=== PATIENT | male | born 1950 | race Caucasian/White ===

== ENCOUNTER 2017-08-09 12:30 | Inpatient (IN) | payer MEDICARE, OTHER ==
[2017-08-09 13:40] LABS: ADD MAN DIFF? NO
[2017-08-09 13:43] LABS: WHITE BLOOD COUNT 4.8 10^3/ul (4.8-10.8)
[2017-08-09 13:43] LABS: BASOPHILS % 0.6 % (0.0-2.0); EOSINOPHILS # 0.1 10^3/ul (0.0-0.5); EOSINOPHILS % 1.5 % (0.0-7.0); HEMATOCRIT 47.2 % (42.0-52.0); HEMOGLOBIN 15.7 g/dl (14.0-18.0); LYMPHOCYTES # 1.3 10^3/ul (0.8-2.9); LYMPHOCYTES % 27.3 % (15.0-51.0); MEAN CORPUSCULAR HEMOGLOBIN 28.9 pg (29.0-33.0); MEAN CORPUSCULAR HGB CONC 33.3 g/dl (32.0-37.0); MEAN CORPUSCULAR VOLUME 86.8 fl (82.0-101.0); MEAN PLATELET VOLUME 9.6 fl (7.4-10.4); MONOCYTE # 0.3 10^3/ul (0.3-0.9); MONOCYTES % 6.3 % (0.0-11.0); NEUTROPHIL # 3.1 10^3/ul (1.6-7.5); NEUTROPHILS % 64.1 % (39.0-77.0); PLATELET COUNT 202 10^3/UL (140-415); RED BLOOD COUNT 5.44 10^6/ul (4.70-6.10); RED CELL DISTRIBUTION WIDTH 14.4 % (11.5-14.5)
[2017-08-09] MEDS: ASPIRIN 325 MG TAB PO (13:44)
[2017-08-09 13:59] LABS: HEMOGLOBIN A1C 5.4 % (0-5.9)
[2017-08-09 13:59] LABS: PROTIME 13.3 Sec (11.9-14.9)
[2017-08-09 14:00] LABS: ADD UMIC NO; PARTIAL THROMBOPLASTIN TIME 30.6 Sec (25.0-35.0); UR ASCORBIC ACID NEGATIVE (NEGATIVE); UR BILIRUBIN (Dip) NEGATIVE (NEGATIVE); UR BLOOD (Dip) NEGATIVE (NEGATIVE); UR CLARITY CLEAR (CLEAR); UR COLOR STRAW (YELLOW); UR GLUCOSE (Dip) NEGATIVE (NEGATIVE); UR KETONES (Dip) NEGATIVE (NEGATIVE); UR LEUKOCYTE ESTERASE (Dip) NEGATIVE Leu/ul (NEGATIVE); UR NITRITE (Dip) NEGATIVE (NEGATIVE); UR SPECIFIC GRAVITY (Dip) 1.012 (1.003-1.030); UR TOTAL PROTEIN (Dip) NEGATIVE (NEGATIVE); UR UROBILINOGEN (Dip) NEGATIVE (NEGATIVE)
[2017-08-09 14:01] LABS: ANION GAP 14 (8-16); BLOOD UREA NITROGEN 23 mg/dl (7-20); CALCIUM 9.4 mg/dl (8.4-10.2); CARBON DIOXIDE 32 mmol/L (21-31); CHLORIDE 98 mmol/L (97-110); CREATININE 0.83 mg/dl (0.61-1.24); GLUCOSE 107 mg/dl (70-220); POTASSIUM 3.5 mmol/L (3.5-5.1); SODIUM 140 mmol/L (135-144)
[2017-08-09] MEDS: SOD CHLORIDE 0.9% 100 ML (14:11)
[2017-08-09] MEDS: IOHEXOL 300MG/ML 150 ML BTL (14:11)
[2017-08-09 14:15] LABS: TROPONIN-I < 0.012 ng/ml (0.00-0.12)
[2017-08-09] MEDS: SOD CHLORIDE 0.9% 1,000 ML IV (14:16)
[2017-08-09 14:22] LABS: AMPHETAMINE/METHAMPHETAMINE Negative (NEGATIVE); BARBITURATES Negative (NEGATIVE); BENZODIAZEPINES Negative (NEGATIVE); CANNABINOIDS Negative (NEGATIVE); COCAINE Negative (NEGATIVE); OPIATES Negative (NEGATIVE)
[2017-08-09] MEDS ORDERED: ONDANSETRON 4 MG INJ IV ×2 (15:00→20:00)
[2017-08-09] MEDS ORDERED: ACETAMINOPHEN 325 MG TAB PO (15:00)
[2017-08-09] MEDS ORDERED: NACL 0.9% 3 ML SYG IV (20:00)
[2017-08-09] MEDS: ATORVASTATIN 80 MG TAB PO ×3 (20:45→20:46)
[2017-08-09 21:38] LABS: CREATINE KINASE 163 IU/L (23-200)
[2017-08-09 21:53] LABS: CK-MB 1.67 ng/ml (0.0-2.4); TROPONIN-I < 0.012 ng/ml (0.00-0.12)
[2017-08-10 01:31] LABS: CREATINE KINASE 174 IU/L (23-200)
[2017-08-10 01:51] LABS: CK-MB 1.74 ng/ml (0.0-2.4); TROPONIN-I < 0.012 ng/ml (0.00-0.12)
[2017-08-10] MEDS ORDERED: hydrALAzine 20 MG INJ IV (06:30)
[2017-08-10 07:21] LABS: ADD MAN DIFF? NO
[2017-08-10 07:34] LABS: BASOPHILS % 0.5 % (0.0-2.0); EOSINOPHILS # 0.2 10^3/ul (0.0-0.5); EOSINOPHILS % 2.9 % (0.0-7.0); HEMATOCRIT 44.3 % (42.0-52.0); LYMPHOCYTES # 1.1 10^3/ul (0.8-2.9); LYMPHOCYTES % 20.6 % (15.0-51.0); MEAN CORPUSCULAR HEMOGLOBIN 29.1 pg (29.0-33.0); MEAN CORPUSCULAR HGB CONC 33.9 g/dl (32.0-37.0); MEAN CORPUSCULAR VOLUME 85.9 fl (82.0-101.0); MONOCYTE # 0.4 10^3/ul (0.3-0.9); MONOCYTES % 6.4 % (0.0-11.0); NEUTROPHIL # 3.8 10^3/ul (1.6-7.5); NEUTROPHILS % 69.4 % (39.0-77.0); PLATELET COUNT 218 10^3/UL (140-415); RED BLOOD COUNT 5.16 10^6/ul (4.70-6.10); RED CELL DISTRIBUTION WIDTH 14.4 % (11.5-14.5)
[2017-08-10 07:34] LABS: WHITE BLOOD COUNT 5.5 10^3/ul (4.8-10.8)
[2017-08-10 07:54] LABS: ALANINE AMINOTRANSFERASE 37 IU/L (13-69); ALBUMIN 3.9 g/dl (3.3-4.9); ALBUMIN/GLOBULIN RATIO 1.21; ALKALINE PHOSPHATASE 70 IU/L (42-121); ANION GAP 12 (8-16); ASPARTATE AMINO TRANSFERASE 31 IU/L (15-46); BILIRUBIN,INDIRECT 0.4 mg/dl (0-1.1); BILIRUBIN,TOTAL 0.4 mg/dl (0.2-1.3); BLOOD UREA NITROGEN 20 mg/dl (7-20); CALCIUM 8.8 mg/dl (8.4-10.2); CARBON DIOXIDE 29 mmol/L (21-31); CHLORIDE 106 mmol/L (97-110); CHOL/HDL RATIO 3.5 RATIO; CHOLESTEROL 157 mg/dl (100-200); CREATININE 0.74 mg/dl (0.61-1.24); GLUCOSE 91 mg/dl (70-220); HDL CHOLESTEROL 44 mg/dl (30-78); LDL CHOLESTEROL,CALCULATED 98 mg/dl; MAGNESIUM 1.9 mg/dl (1.7-2.5); POTASSIUM 3.5 mmol/L (3.5-5.1); SODIUM 143 mmol/L (135-144); TOTAL PROTEIN 7.1 g/dl (6.1-8.1); TRIGLYCERIDES 74 mg/dl (0-149)
[2017-08-10] MEDS: ASPIRIN 81 MG TAB PO (08:13)
[2017-08-10 08:54] LABS: HEMOGLOBIN A1C 5.5 % (0-5.9)
[2017-08-10] MEDS: AMLODIPINE 5 MG TAB PO (12:54)
[2017-08-10] MEDS: HYDROCHLOROTHIAZIDE 25 MG TAB PO (12:54)
[2017-08-10] MEDS: ATORVASTATIN 80 MG TAB PO (21:49)
[2017-08-11 06:53] LABS: ADD MAN DIFF? NO
[2017-08-11 06:56] LABS: BASOPHILS % 0.6 % (0.0-2.0); EOSINOPHILS # 0.3 10^3/ul (0.0-0.5); EOSINOPHILS % 5.2 % (0.0-7.0); HEMATOCRIT 45.1 % (42.0-52.0); HEMOGLOBIN 15.3 g/dl (14.0-18.0); LYMPHOCYTES # 1.2 10^3/ul (0.8-2.9); MEAN CORPUSCULAR HEMOGLOBIN 28.8 pg (29.0-33.0); MEAN CORPUSCULAR HGB CONC 33.9 g/dl (32.0-37.0); MEAN CORPUSCULAR VOLUME 84.9 fl (82.0-101.0); MEAN PLATELET VOLUME 9.7 fl (7.4-10.4); MONOCYTE # 0.4 10^3/ul (0.3-0.9); MONOCYTES % 7.4 % (0.0-11.0); NEUTROPHIL # 3.4 10^3/ul (1.6-7.5); NEUTROPHILS % 63.6 % (39.0-77.0); PLATELET COUNT 206 10^3/UL (140-415); RED BLOOD COUNT 5.31 10^6/ul (4.70-6.10); RED CELL DISTRIBUTION WIDTH 14.2 % (11.5-14.5)
[2017-08-11 06:56] LABS: WHITE BLOOD COUNT 5.4 10^3/ul (4.8-10.8)
[2017-08-11 07:29] LABS: ANION GAP 10 (8-16); BLOOD UREA NITROGEN 20 mg/dl (7-20); CARBON DIOXIDE 29 mmol/L (21-31); CHLORIDE 101 mmol/L (97-110); CREATININE 0.82 mg/dl (0.61-1.24); GLUCOSE 96 mg/dl (70-220); MAGNESIUM 1.9 mg/dl (1.7-2.5); POTASSIUM 3.4 mmol/L (3.5-5.1); SODIUM 137 mmol/L (135-144)
[2017-08-11 07:42] LABS: FREE THYROXINE INDEX (Calc) 3.25 ug/ml (0.65-3.89); T3 UPTAKE 35.7 % (23.5-40.5); T4 (THYROXINE) 9.1 ug/dl (5.5-11.0)
[2017-08-11] MEDS: ASPIRIN 81 MG TAB PO (08:21)
[2017-08-11] MEDS: AMLODIPINE 5 MG TAB PO (08:21)
[2017-08-11] MEDS: HYDROCHLOROTHIAZIDE 25 MG TAB PO (08:21)
[2017-08-11] MEDS: INFLUENZA VIRUS VACCINE 0.5 ML (DISPENSING) IM* (08:22)
[2017-08-11] MEDS: AMOXICILLIN/CLAV 875 MG TAB PO ×2 (11:56→20:56)
[2017-08-11] MEDS: POTASSIUM CHLORIDE (SR) 20 MEQ TAB PO (16:17)
[2017-08-11] MEDS: ATORVASTATIN 80 MG TAB PO (20:56)
[2017-08-12 07:16] LABS: ADD MAN DIFF? NO
[2017-08-12 07:24] LABS: WHITE BLOOD COUNT 6.2 10^3/ul (4.8-10.8)
[2017-08-12 07:24] LABS: BASOPHILS % 0.6 % (0.0-2.0); EOSINOPHILS # 0.3 10^3/ul (0.0-0.5); EOSINOPHILS % 4.3 % (0.0-7.0); HEMOGLOBIN 14.9 g/dl (14.0-18.0); LYMPHOCYTES # 1.3 10^3/ul (0.8-2.9); LYMPHOCYTES % 20.9 % (15.0-51.0); MEAN CORPUSCULAR HGB CONC 33.9 g/dl (32.0-37.0); MEAN CORPUSCULAR VOLUME 85.8 fl (82.0-101.0); MEAN PLATELET VOLUME 9.5 fl (7.4-10.4); MONOCYTE # 0.5 10^3/ul (0.3-0.9); MONOCYTES % 8.7 % (0.0-11.0); NEUTROPHIL # 4.1 10^3/ul (1.6-7.5); NEUTROPHILS % 65.3 % (39.0-77.0); PLATELET COUNT 205 10^3/UL (140-415); RED BLOOD COUNT 5.13 10^6/ul (4.70-6.10); RED CELL DISTRIBUTION WIDTH 14.2 % (11.5-14.5)
[2017-08-12 07:49] LABS: ANION GAP 12 (8-16); BLOOD UREA NITROGEN 20 mg/dl (7-20); CALCIUM 8.5 mg/dl (8.4-10.2); CARBON DIOXIDE 29 mmol/L (21-31); CHLORIDE 104 mmol/L (97-110); CREATININE 0.82 mg/dl (0.61-1.24); GLUCOSE 89 mg/dl (70-220); POTASSIUM 3.9 mmol/L (3.5-5.1); SODIUM 141 mmol/L (135-144)
[2017-08-12] MEDS: AMLODIPINE 5 MG TAB PO ×2 (09:00→09:35)
[2017-08-12] MEDS: AMOXICILLIN/CLAV 875 MG TAB PO ×2 (09:35→20:33)
[2017-08-12] MEDS: HYDROCHLOROTHIAZIDE 25 MG TAB PO (09:36)
[2017-08-12] MEDS: ATORVASTATIN 80 MG TAB PO (20:33)
== END 2017-08-12 21:55 | DRG 65 ==
LOC: E/R 12:30 → TEL 14:51
DX: I63.9 Cerebral infarction, unspecified (principal); G81.91 Hemiplegia, unspecified affecting right dominant side; I11.9 Hypertensive heart disease without heart failure; G93.0 Cerebral cysts; J01.00 Acute maxillary sinusitis, unspecified; J01.20 Acute ethmoidal sinusitis, unspecified
CPT/HCPCS: 70450; 70496; 70498; 70544; 70551; 71045; 80048; 80053; 80061; 80307; 81003; 82550; 82553; 83036; 83735; 84436; 84443; 84479; 84484; 85025; 85610; 85730; 90686; 92610; 93005; 93306; 97110; 97116; 97162; 97167; 97530; 99291-25

== ENCOUNTER 2017-08-12 22:12 | Inpatient (IN) | payer MEDICARE, OTHER ==
[2017-08-12 23:30] LABS: ADD UMIC YES; UR ASCORBIC ACID NEGATIVE (NEGATIVE); UR BILIRUBIN (Dip) NEGATIVE (NEGATIVE); UR BLOOD (Dip) 1+ mg/dL (NEGATIVE); UR CLARITY CLEAR (CLEAR); UR COLOR STRAW (YELLOW); UR GLUCOSE (Dip) NEGATIVE (NEGATIVE); UR KETONES (Dip) NEGATIVE (NEGATIVE); UR LEUKOCYTE ESTERASE (Dip) NEGATIVE Leu/ul (NEGATIVE); UR NITRITE (Dip) NEGATIVE (NEGATIVE); UR RBC 0 /HPF (0-5); UR SPECIFIC GRAVITY (Dip) 1.009 (1.003-1.030); UR TOTAL PROTEIN (Dip) NEGATIVE (NEGATIVE); UR UROBILINOGEN (Dip) NEGATIVE (NEGATIVE); UR WBC 0 /HPF (0-5)
[2017-08-13] MEDS ORDERED: ONDANSETRON 4 MG INJ IV
[2017-08-13] MEDS ORDERED: hydrALAzine 20 MG INJ IV
[2017-08-13] MEDS ORDERED: NACL 0.9% 3 ML SYG IV (00:30)
[2017-08-13 07:23] LABS: ADD MAN DIFF? NO
[2017-08-13 07:27] LABS: WHITE BLOOD COUNT 5.9 10^3/ul (4.8-10.8)
[2017-08-13 07:27] LABS: BASOPHIL # 0.1 10^3/ul (0.0-0.1); BASOPHILS % 0.8 % (0.0-2.0); EOSINOPHILS # 0.4 10^3/ul (0.0-0.5); EOSINOPHILS % 7.3 % (0.0-7.0); HEMATOCRIT 43.5 % (42.0-52.0); HEMOGLOBIN 14.8 g/dl (14.0-18.0); LYMPHOCYTES # 1.4 10^3/ul (0.8-2.9); LYMPHOCYTES % 23.8 % (15.0-51.0); MEAN CORPUSCULAR HEMOGLOBIN 29.3 pg (29.0-33.0); MEAN CORPUSCULAR VOLUME 86.1 fl (82.0-101.0); MEAN PLATELET VOLUME 9.7 fl (7.4-10.4); MONOCYTE # 0.6 10^3/ul (0.3-0.9); NEUTROPHIL # 3.4 10^3/ul (1.6-7.5); NEUTROPHILS % 57.8 % (39.0-77.0); PLATELET COUNT 213 10^3/UL (140-415); RED BLOOD COUNT 5.05 10^6/ul (4.70-6.10)
[2017-08-13] MEDS: ASPIRIN 81 MG TAB PO (08:54)
[2017-08-13] MEDS: AMLODIPINE 5 MG TAB PO (08:55)
[2017-08-13] MEDS: HYDROCHLOROTHIAZIDE 25 MG TAB PO (08:56)
[2017-08-13] MEDS: AMOXICILLIN/CLAV 875 MG TAB PO ×2 (08:56→21:49)
[2017-08-13] MEDS: ATORVASTATIN 80 MG TAB PO (20:47)
[2017-08-14 07:34] LABS: ALANINE AMINOTRANSFERASE 44 IU/L (13-69); ALBUMIN 3.4 g/dl (3.3-4.9); ALBUMIN/GLOBULIN RATIO 1.09; ALKALINE PHOSPHATASE 69 IU/L (42-121); ANION GAP 11 (8-16); ASPARTATE AMINO TRANSFERASE 42 IU/L (15-46); BILIRUBIN,INDIRECT 0.4 mg/dl (0-1.1); BILIRUBIN,TOTAL 0.4 mg/dl (0.2-1.3); BLOOD UREA NITROGEN 15 mg/dl (7-20); CALCIUM 8.7 mg/dl (8.4-10.2); CARBON DIOXIDE 31 mmol/L (21-31); CHLORIDE 101 mmol/L (97-110); CREATININE 0.76 mg/dl (0.61-1.24); GLUCOSE 85 mg/dl (70-220); POTASSIUM 4.2 mmol/L (3.5-5.1); SODIUM 139 mmol/L (135-144); TOTAL PROTEIN 6.5 g/dl (6.1-8.1)
[2017-08-14] MEDS: AMOXICILLIN/CLAV 875 MG TAB PO ×2 (08:44→21:02)
[2017-08-14] MEDS: ASPIRIN 81 MG TAB PO (08:44)
[2017-08-14] MEDS: HYDROCHLOROTHIAZIDE 25 MG TAB PO (09:35)
[2017-08-14] MEDS: AMLODIPINE 5 MG TAB PO (09:35)
[2017-08-14] MEDS: ATORVASTATIN 80 MG TAB PO (21:02)
[2017-08-15] MEDS: ASPIRIN 81 MG TAB PO (09:00)
[2017-08-15] MEDS: AMLODIPINE 5 MG TAB PO (09:00)
[2017-08-15] MEDS: AMOXICILLIN/CLAV 875 MG TAB PO ×2 (09:00→20:27)
[2017-08-15] MEDS: HYDROCHLOROTHIAZIDE 25 MG TAB PO (09:00)
[2017-08-15] MEDS: ATORVASTATIN 80 MG TAB PO (20:27)
[2017-08-16] MEDS: ASPIRIN 81 MG TAB PO (08:28)
[2017-08-16] MEDS: AMOXICILLIN/CLAV 875 MG TAB PO ×2 (08:28→20:14)
[2017-08-16] MEDS: AMLODIPINE 5 MG TAB PO (08:28)
[2017-08-16] MEDS: HYDROCHLOROTHIAZIDE 25 MG TAB PO (08:28)
[2017-08-16] MEDS: ATORVASTATIN 80 MG TAB PO (20:14)
[2017-08-17 06:44] LABS: ADD MAN DIFF? NO
[2017-08-17 06:54] LABS: WHITE BLOOD COUNT 5.1 10^3/ul (4.8-10.8)
[2017-08-17 06:54] LABS: BASOPHIL # 0.1 10^3/ul (0.0-0.1); EOSINOPHILS # 0.3 10^3/ul (0.0-0.5); EOSINOPHILS % 5.3 % (0.0-7.0); HEMATOCRIT 42.5 % (42.0-52.0); HEMOGLOBIN 14.6 g/dl (14.0-18.0); LYMPHOCYTES # 1.6 10^3/ul (0.8-2.9); LYMPHOCYTES % 30.6 % (15.0-51.0); MEAN CORPUSCULAR HEMOGLOBIN 29.4 pg (29.0-33.0); MEAN CORPUSCULAR HGB CONC 34.4 g/dl (32.0-37.0); MEAN CORPUSCULAR VOLUME 85.5 fl (82.0-101.0); MEAN PLATELET VOLUME 9.5 fl (7.4-10.4); MONOCYTE # 0.4 10^3/ul (0.3-0.9); MONOCYTES % 8.6 % (0.0-11.0); NEUTROPHIL # 2.8 10^3/ul (1.6-7.5); NEUTROPHILS % 54.3 % (39.0-77.0); PLATELET COUNT 203 10^3/UL (140-415); RED BLOOD COUNT 4.97 10^6/ul (4.70-6.10); RED CELL DISTRIBUTION WIDTH 13.5 % (11.5-14.5)
[2017-08-17 07:11] LABS: ANION GAP 10 (8-16); BLOOD UREA NITROGEN 14 mg/dl (7-20); CALCIUM 8.3 mg/dl (8.4-10.2); CARBON DIOXIDE 34 mmol/L (21-31); CHLORIDE 100 mmol/L (97-110); CREATININE 0.86 mg/dl (0.61-1.24); GLUCOSE 86 mg/dl (70-220); POTASSIUM 3.6 mmol/L (3.5-5.1); SODIUM 140 mmol/L (135-144)
[2017-08-17] MEDS: AMOXICILLIN/CLAV 875 MG TAB PO ×2 (09:42→21:29)
[2017-08-17] MEDS: HYDROCHLOROTHIAZIDE 25 MG TAB PO (09:43)
[2017-08-17] MEDS: AMLODIPINE 5 MG TAB PO (09:43)
[2017-08-17] MEDS: ASPIRIN 81 MG TAB PO (09:43)
[2017-08-17] MEDS: POTASSIUM CHLORIDE 20 MEQ POWDER FOR ORAL SOLN PO (15:17)
[2017-08-17] MEDS: ATORVASTATIN 80 MG TAB PO (21:30)
[2017-08-18] MEDS: AMLODIPINE 5 MG TAB PO (10:56)
[2017-08-18] MEDS: AMOXICILLIN/CLAV 875 MG TAB PO ×2 (10:56→20:30)
[2017-08-18] MEDS: ASPIRIN 81 MG TAB PO (10:56)
[2017-08-18] MEDS: HYDROCHLOROTHIAZIDE 25 MG TAB PO (10:56)
[2017-08-18] MEDS: ATORVASTATIN 80 MG TAB PO (20:30)
[2017-08-19] MEDS: AMOXICILLIN/CLAV 875 MG TAB PO ×2 (09:24→21:13)
[2017-08-19] MEDS: ASPIRIN 81 MG TAB PO (09:24)
[2017-08-19] MEDS: HYDROCHLOROTHIAZIDE 25 MG TAB PO (09:24)
[2017-08-19] MEDS: AMLODIPINE 5 MG TAB PO (09:24)
[2017-08-19] MEDS: ATORVASTATIN 80 MG TAB PO (21:13)
[2017-08-20] MEDS: AMOXICILLIN/CLAV 875 MG TAB PO ×2 (09:10→20:55)
[2017-08-20] MEDS: ASPIRIN 81 MG TAB PO (09:10)
[2017-08-20] MEDS: AMLODIPINE 5 MG TAB PO (09:10)
[2017-08-20] MEDS: HYDROCHLOROTHIAZIDE 25 MG TAB PO (09:10)
[2017-08-20] MEDS: ATORVASTATIN 80 MG TAB PO (20:55)
[2017-08-21] MEDS: ASPIRIN 81 MG TAB PO (09:01)
[2017-08-21] MEDS: AMOXICILLIN/CLAV 875 MG TAB PO (09:01)
[2017-08-21] MEDS: HYDROCHLOROTHIAZIDE 25 MG TAB PO (09:02)
[2017-08-21] MEDS: AMLODIPINE 5 MG TAB PO (09:02)
== END 2017-08-21 17:30 | disposition home health service (06) | DRG 57 ==
LOC: VRC 22:12
PROC: F07Z5ZZ Bed Mobility Treatment (ICD-10-PCS; principal; 2017-08-12)
PROC: F08Z2ZZ Grooming/Personal Hygiene Treatment (ICD-10-PCS; 2017-08-12)
PROC: F06Z6ZZ Communicative/Cognitive Integration Skills Treatment (ICD-10-PCS; 2017-08-12)
DX: I69.351 Hemiplegia and hemiparesis following cerebral infarction affecting right dominant side (principal); F01.50 Vascular dementia, unspecified severity, without behavioral disturbance, psychotic disturbance, mood disturbance, and anxiety; I10 Essential (primary) hypertension; F32.89 Other specified depressive episodes; G93.0 Cerebral cysts; J32.0 Chronic maxillary sinusitis; Z79.82 Long term (current) use of aspirin
CPT/HCPCS: 80048; 80053; 81001; 85025; 87081; 87086; 92507; 92523; 92526; 92610; 97110; 97112; 97116; 97150; 97163; 97167; 97530; 97535; 97542